=== PATIENT | female | born 1975 | race Caucasian/White ===

== ENCOUNTER 2018-03-21 19:57 | Inpatient (IN) | END 2018-03-22 14:00 | disposition home or self-care (01) | DRG 742 ==

== ENCOUNTER 2018-12-16 11:50 | Emergency (ER) | payer BC ==
[~2018-12-16] VITALS: Ht 162.6 cm; Wt 77.7 kg
[2018-12-16 12:15] VITALS: BP 126/83; PULSE 87; RESP 18; Ht 162.6 cm; Wt 77.7 kg
--- NOTE | 2018-12-16 12:42 | ERD ---
ER Documentation Chief Complaint Chief Complaint PT with fever, congestion and CWP X 3 days. ROS All systems reviewed and are negative except as per history of present illness. Medications Home Meds Active Scripts Ibuprofen* (Motrin*) 600 Mg Tab, 600 MG PO Q8, #20 TAB Prov:HA GLEASON MD 12/16/18 Cetirizine Hcl* (Zyrtec*) 10 Mg Capsule, 10 MG PO DAILY, #10 TAB.CHEW Prov:HA GLEASON MD 12/16/18 Albuterol Sulfate* (Albuterol Sulfate* Liq) 2 Mg/5 Ml Syrup, 4 MG PO TID, #60 ML Prov:HA GLEASON MD 12/16/18 Azithromycin* (Zithromax*) 250 Mg Tablet, 250 MG PO .ZPACK DIRECTED, #6 TAB TAKE 500 MG (2 TABS) THE FIRST DAY THEN 250 MG (1 TAB) DAYS 2-5 Prov:HA GLEASON MD 12/16/18 Allergies Allergies: Coded Allergies: Penicillins (Verified Allergy, Unknown, 04/09/16) PMhx/Soc History of Surgery: Yes (S/P LYSIS OF ADHESIONS ) Anesthesia Reaction: No Hx Neurological Disorder: No Hx Respiratory Disorders: No Hx Cardiac Disorders: Yes (HTN ) Hx Psychiatric Problems: No Hx Miscellaneous Medical Probl: No Hx Alcohol Use: No Hx Substance Use: No Hx Tobacco Use: No Physical Exam Vitals Vital Signs Date Temp Pulse Resp B/P (MAP) Pulse Ox O2 O2 Flow FiO2 Time Delivery Rate 12/16/18 98.4 87 18 126/83 99 12:15 (97) Physical Exam Const: No acute distress Head: Atraumatic Eyes: Normal Conjunctiva ENT: Normal External Ears, Nose and Mouth. Neck: Full range of motion. No meningismus. Resp: Clear to auscultation bilaterally Cardio: Regular rate and rhythm, no murmurs Abd: Soft, non tender, non distended. Normal bowel sounds Skin: No petechiae or rashes Back: No midline or flank tenderness Ext: No cyanosis, or edema Neur: Awake and alert Psych: Normal Mood and Affect Procedures/MDM At the time of discharge, patient with nontoxic appearance, vital signs stable, no respiratory distress. Differential diagnosis include but not limited to: upper vs lower respiratory infection bacterial/viral/fungal. Asthma, COPD, pneumonitis, allergies, GERD. Less likely pulmonary embolism, cardiac related or malignancy, but still is a possibility. Physical examination and clinical presentation consistent most likely with viral infection with early superimposed bacterial infection. During the ED course the patient remained stable, no new complaints. Treatment options and clinical impression discussed with the patient who agrees with management. The patient is stable to be treated outpatient and will be discharged home. Some side effects of prescribed medications (headache, rash, nausea, vomiting, diarrhea, interactions with other medications) were reviewed. The patient needs to follow up with the primary care provider in the next 48h. If symptoms persist, worsen or new symptoms develop, then patient should return to the ED immediately. Disclaimer: Inadvertent spelling and grammatical errors are likely due to EHR/dictation software use and do not reflect on the overall quality of patient care. Also, please note that the electronic time recorded on this note does not necessarily reflect the actual time of the patient encounter. Departure Diagnosis: Primary Impression: Fever Additional Impressions: Cough Abnormal respiratory sounds Condition: Stable Additional Instructions: Muchas abdoul por [facility] para gaviria servicio. Esperamos que en gaviria visita a la nickie de emergencia gaviria problema medico haya sido solucionado y que se sienta mucho mejor. Para estar seguros que gaviria mejoria sigue en proceso, le pedimos el favor de hacer brynn unruly de seguimiento medico con gaviria doctor primario en los proximos 2-4 finn. Lleve con usted estos documentos y las medicinas recetadas. Si ezequiel sintomas empeoran, NO SE ESPERE, por favor regrese a nickie de emergencia INMEDIATAMENTE. En trayc que usted no tenga un mdico de atencin primaria: Llame al mdico o clnica comunitaria de referencia que aparece abajo jimmy las horas de consultorio para hacer brynn unruly para que le vean. CLINICAS: [facility] [phone] [address] [facility] [phone] [facility] [phone] [place] [id number] [phone] [place] [id number] [phone] [facility]. [phone] HA DIETRICH MD December 16, 2018 12:42
[2018-12-16] MEDS ORDERED: IBUP-1542 PO (12:44)
[2018-12-16] MEDS ORDERED: AZIT250T PO (12:44)
[2018-12-16] MEDS ORDERED: ALBU2SYR3 PO (12:44)
[2018-12-16] MEDS ORDERED: CETI10CA PO (12:44)
== END 2018-12-16 13:18 | disposition home or self-care (01) ==
LOC: FTE 11:50
DX: R50.9 Fever, unspecified (principal); I10 Essential (primary) hypertension; R05 Cough; R09.89 Other specified symptoms and signs involving the circulatory and respiratory systems
CPT/HCPCS: 99283

== ENCOUNTER 2018-12-18 08:53 | Emergency (ER) | payer BC ==
[~2018-12-18] VITALS: Ht 162.6 cm; Wt 78.0 kg
[~2018-12-18 08:53] MED LIST: ALBU2SYR3 PO; AZIT250T PO; CETI10CA PO; IBUP-1542 PO
[2018-12-18 08:56] VITALS: Ht 162.6 cm; Wt 78.0 kg
[2018-12-18] MEDS ORDERED: KETOROLAC 60 MG INJ IM STA (09:22)
[2018-12-18] MEDS ORDERED: ALBUTEROL 0.083% (NEB) 2.5 MG/3 ML AMP HHN STA (09:22)
[2018-12-18] MEDS ORDERED: PROMETHAZINE/CODEINE 5ML CUP PO ONE (09:30)
[2018-12-18] MEDS ORDERED: DEXAMETHASONE 10 MG/ML 1 ML INJ IM ONE (09:30)
[2018-12-18] MEDS ORDERED: IPRATROPIUM (NEB) 0.5 MG/2.5 ML AMP HHN ONE (09:30)
[2018-12-18] MEDS ORDERED: GUAIFENESIN LA 600 MG TABSR PO ONE (09:30)
[2018-12-18] MEDS ORDERED: PROM25TA14 PO (12:21)
[2018-12-18] MEDS ORDERED: BENZ-6 PO (12:21)
[2018-12-18] MEDS ORDERED: GUAI118L22 PO (12:21)
[2018-12-18] MEDS ORDERED: ALBU18HF INHALATION (12:21)
[2018-12-18] MEDS ORDERED: CETI10TA19 PO (12:25)
[2018-12-18 12:37] VITALS: BP 137/71; PULSE 88; RESP 16
--- NOTE | 2018-12-18 16:23 | ERD ---
ER Documentation Chief Complaint Chief Complaint pt is bib self with c/o feeling sob, cough and pain with resp, x 4days HPI History of Present Illness: 43-year-old female who reports a medical history of hypertension coming in today with complaint of shortness of breath, productive cough with green sputum, ear pain, sore throat, fatigue. Symptoms have been present for 4 days. Patient was seen at [facility] emergency department on 12/16/2018, and symptoms have persisted. At home pharmacological/nonpharmacological treatment for symptoms: Albuterol, ibuprofen, azithromycin (3 days remaining) Denies social concerns; Denies recent foreign travel ROS All systems reviewed and are negative except as per history of present illness. Medications Home Meds Active Scripts Cetirizine Hcl* (Cetirizine Hcl*) 10 Mg Tablet, 10 MG PO DAILY for ALERGIES/COUGH/RUNNY NOSE, #30 TAB Prov:XENIA COVINGTON NP 12/18/18 Promethazine Hcl* (Phenergan*) 25 Mg Tablet, 25 MG PO Q6 PRN for ALLERGIES/NIGHTIME COUGH, #10 TAB Prov:XENIA COVINGTON NP 12/18/18 Albuterol Sulfate* (Ventolin HFA*) 18 Gm Hfa.aer.ad, 2 PUFF INHALATION Q4H, #1 INHALER Prov:XENIA COVINGTON NP 12/18/18 Guaifenesin/Codeine Phosphate (CHERATUSSIN AC SYRUP) 118 Ml Liquid, 10 ML PO Q6H PRN for COUGH, #118 ML Prov:XENIA COVINGTON NP 12/18/18 Benzonatate* (Tessalon Perle*) 100 Mg Capsule, 200 MG PO Q8H PRN for COUGH, #30 CAP Prov:XENIA COVINGTON NP 12/18/18 Ibuprofen* (Motrin*) 600 Mg Tab, 600 MG PO Q8, #20 TAB Prov:HA GLEASON MD 12/16/18 Cetirizine Hcl* (Zyrtec*) 10 Mg Capsule, 10 MG PO DAILY, #10 TAB.CHEW Prov:HA GLEASON MD 12/16/18 Albuterol Sulfate* (Albuterol Sulfate* Liq) 2 Mg/5 Ml Syrup, 4 MG PO TID, #60 ML Prov:HA GLEASON MD 12/16/18 Azithromycin* (Zithromax*) 250 Mg Tablet, 250 MG PO .JAREK DIRECTED, #6 TAB TAKE 500 MG (2 TABS) THE FIRST DAY THEN 250 MG (1 TAB) DAYS 2-5 Prov:HA GLEASON MD 12/16/18 Allergies Allergies: Coded Allergies: Penicillins (Verified Allergy, Unknown, 04/09/16) PMhx/Soc History of Surgery: Yes (S/P LYSIS OF ADHESIONS ,c/s,hernia) Anesthesia Reaction: No Hx Neurological Disorder: No Hx Respiratory Disorders: No Hx Cardiac Disorders: Yes (HTN ) Hx Psychiatric Problems: No Hx Miscellaneous Medical Probl: No Hx Alcohol Use: No Hx Substance Use: No Hx Tobacco Use: No Smoking Status: Never smoker FmHx Family History: diabetes; No coronary disease Physical Exam Vitals Vital Signs Date Temp Pulse Resp B/P (MAP) Pulse Ox O2 O2 Flow FiO2 Time Delivery Rate 12/18/18 98.1 88 16 137/71 98 Room Air 12:37 (93) 12/18/18 79 20 96 21 09:46 12/18/18 98.9 84 20 149/83 99 08:56 (105) Physical Exam Const: No acute distress Head: Atraumatic Eyes: Normal Conjunctiva ENT: Normal External Ears, Nose and Mouth. Neck: Full range of motion. No meningismus. Resp: Breathing is unlabored, shallow. Clear to auscultation bilaterally, diminished in all lobes. Cardio: Regular rate and rhythm, no murmurs Abd: Soft, non tender, non distended. Normal bowel sounds Skin: No petechiae or rashes Back: No midline or flank tenderness Ext: No cyanosis, or edema Neur: Awake and alert Psych: Normal Mood and Affect Results 24 hrs Laboratory Tests Test 12/18/18 09:39 POC Beta HCG, Qualitative NEGATIVE Current Medications Medications Dose Sig/Trinity Start Time Status Last (Trade) Ordered Route PRN Stop Time Admin Dose Reason Admin Albuterol 5 mg ONCE STAT 12/18/18 DC 12/18/18 (Proventil HHN 09:22 09:45 0.083% (Neb)) 12/18/18 09:25 Ipratropium 0.5 mg ONCE ONCE 12/18/18 DC 12/18/18 [place] [facility] 09:30 09:45 (Atrovent 12/18/18 09:31 0.02% (Neb)) Promethazine 10 ml ONCE ONCE 12/18/18 DC 12/18/18 HCl/ PO 09:30 09:51 Codeine 12/18/18 09:31 (Phenergan/ Codeine) Guaifenesin 600 mg ONCE ONCE 12/18/18 DC 12/18/18 (Mucinex) PO 09:30 10:06 12/18/18 09:31 Ketorolac 60 mg ONCE STAT 12/18/18 DC 12/18/18 Tromethamine IM 09:22 09:51 (Toradol) 12/18/18 09:25 10 mg ONCE ONCE 12/18/18 DC 12/18/18 Dexamethasone IM 09:30 09:51 (Decadron) 12/18/18 09:31 Procedures/MDM ED course includes a thorough examination and history. Medications: Dexamethasone, promethazine/codeine, Toradol, Mucinex Imaging: Chest x-ray Labs: Low suspicion for life-threatening medical emergency. Low suspicion for cardiopulmonary emergency that requires hospitalization or immediate surgical intervention. Low suspicion for infectious process that requires antibiotics. Otherwise healthy patient presenting with constellation of symptoms likely representing uncomplicated [x] as characterized by history, physical exam findings, radiology findings. Checks x-ray results showing: IMPRESSION: No evidence of acute cardiopulmonary disease. RPTAT:AAJJ Physician Reza Date Time Electronically viewed and signed by Mi Garvey Physician on 12/18/2018 12:09 Patient reassessment at 1223: Patient hemodynamically stable. Patient afebrile without use of antipyretics. Informed patient that my medical opinion I do not believe she needs to be on antibiotics. Shared decision making with patient is to continue antibiotics. Lungs are clear to auscultation, patient reports that she is able to move air better. no respiratory distress, otherwise relatively well appearing and nontoxic. Disposition given. Patient educated on diagnoses, prescriptions, follow-up care, return precautions. Strict return precautions given for worsening condition; questions answered discharge. Disposition for discharge with followup in 2 days with PCP/clinic. Departure Diagnosis: Primary Impression: Bronchitis Additional Impression: Allergic rhinitis Allergic rhinitis trigger: unspecified Allergic rhinitis seasonality: unspecified Qualified Codes: J30.9 - Allergic rhinitis, unspecified Condition: Stable Patient Instructions: Bronchitis, No Antibiotic (Adult) Referrals: [facility], [facility] Hours: Mon-Fri 9:00 AM - 5:00 PM [facility] () Usted se chapa hecho un examen mdico de control que le indica que no est en brynn condicin que requiera tratamiento urgente en el Departamento de Emergencia. Un estudio ms profundo y el tratamiento de gipson condicin pueden esperar sin ningn riesgo hasta que usted sea atendida/o en el consultorio de gipson mdico o brynn clnica. Es responsabilidad suya arreglar brynn unruly para el seguimiento del tracy. MANEJO DE CONDICIONES NO URGENTES EN EL FUTURO 1) Si usted tiene un mdico de atencin primaria: Usted debera llamar a gipson mdico de atencin primaria antes de venir al departamento de emergencia. Despus de las horas de consultorio, gipson doctor o gipson asociado/a est disponible por telfono. El mdico o enfermero de jaziel en el servicio telefnico puede asesorarle por sal medio para atender el problema, o tracy contrario se puede programar brynn unruly. 2) Si usted no tiene un mdico de atencin primaria: Llame al mdico o condado institucions de referencia que aparece abajo jimmy las horas de consultorio para hacer brynn unruly para que le vean. SI USTED NO PUEDE PAGAR PARA JADEN UN MEDICO puede ir a: [facility] [address] [place] [address] [facility] [address] [place] [address] [facility] [address] [place] [address] [address] [facility] [address] [place] [address] Additional Instructions: Muchas abdoul por permitirnos participar en gipson cuidado. Gipson alcira y seguridad es nuestra principal prioridad en [facility]. Es importante leer todas las instrucciones de yasmani y la educacin que se proporcionan en gipson paquete de yasmani. * No se observa neumona en gipson radiografa. Puede continuar con el antibitico azitromicina. Detener la medicina lquida albuterol; Estoy dando un inhalador de albuterol en gipson lugar. Continuar con el ibuprofeno para el dolor / inflamacin. * Llame a gipson mdico de atencin primaria MAANA para brynn unruly jimmy los prximos 2 a 4 glasgow y lleve toda la informacin y los medicamentos recetados. Llene las recetas y siga exactamente las instrucciones de la etiqueta. -Cetirizina es un antihistamnico que no debe causar somnolencia; tome ailyn medicamento todos los glasgow para los sntomas de alergia / tos / secrecin nasal. -La prometazina es un antihistamnico que PUEDE causar somnolencia; tome ailyn medicamento por la noche para los sntomas de alergia / tos / secrecin nasal. --Catratena (guaifenesina / codena) es un jarabe para la tos que tambin ayuda a adelgazar la flema / moco. Ailyn medicamento puede causar somnolencia. No opere maquinaria pesada despus de neno ailyn medicamento. -Ventolina es un inhalador. Ailyn medicamento se usa para tratar o prevenir el broncoespasmo. Kiel se puede usar para tratar las sibilancias, la falta de aliento, la tos. -Benzonatate es un medicamento que ayuda con la supresin de la tos. Ailyn medicamento no le aston sueo. Si los sntomas empeoran y gipson proveedor no est disponible, regrese inmedi atamente al Departamento de Emergencias. ---- Thank you very much for allowing us to participate in your care. Your health and safety is our top priority at [facility]. It is important to read all discharge instructions and education provided in your discharge packet. *No pneumonia seen on your x-ray. You may continue antibiotic azithromycin. Stop albuterol liquid medicine; I am giving an albuterol inhaler instead. Continue ibuprofen for pain/inflammation.* Call your primary care doctor TOMORROW for an appointment during the next 2-4 days and bring all the information and medications prescribed. Have prescriptions filled and follow precisely the directions on the label. -Cetirizine is an antihistamine that should not cause drowsiness; take this medication every day for allergy-like symptoms/cough/runny nose. -Promethazine is an antihistamine that MAY cause drowsiness; take this medication at night for allergy-like symptoms/cough/runny nose. --Cheratussin (guaifenesin/codeine) is a cough syrup that will also help with thinning phlegm/mucus. This medication may cause drowsiness. Do not operate heavy machinery after taking this medication. -Ventolin is an inhaler. This medication is used to treat or prevent bronchospasm. This can be used to treat wheezing, shortness of breath, cough. -Benzonatate is a medication that will help with cough suppression. This medication will not make you drowsy. If the symptoms get worse and your provider is unavailable, return to the Emergency Department immediately. XENIA COVINGTON NP December 18, 2018 16:23
== END 2018-12-18 12:39 | disposition home or self-care (01) ==
LOC: FTE 08:53
DX: J40 Bronchitis, not specified as acute or chronic (principal); J30.9 Allergic rhinitis, unspecified; I10 Essential (primary) hypertension
CPT/HCPCS: 71046; 81025; 94664; 96372; 99284; J1100; J1885; Z7610